=== PATIENT | female | born 1995 | race Caucasian/White ===

== ENCOUNTER 2016-10-10 17:13 | Emergency (ER) | payer MEDICAID ==
[~2016-10-10] VITALS: Ht 170.2 cm; Wt 81.6 kg
[~2016-10-10 17:13] MED LIST: AUGMENTIN 875-1 EACH PO; FAMILY PHARMAC325 MG PO; IMPLANON68 MG ID; MEDROL 4MG. DOSE4 MG PO; MOTRIN 400MG.400 MG PO; PRENATAL1 TA2 PO; ZOFRAN ODT4 MG PO
[2016-10-10] MEDS ORDERED: LISINOPRIL10 MG PO (17:44)
[2016-10-10] MEDS ORDERED: SPRINTEC 35 MCG1 TAB PO (17:44)
[2016-10-10] MEDS ORDERED: SERTRALINE 100100 MG PO (17:44)
[2016-10-10] MEDS ORDERED: MUCINEX1200 MG PO (18:14)
[2016-10-10] MEDS ORDERED: FLONASE 50 MCG16 GM (18:14)
[2016-10-10] MEDS ORDERED: CLARITIN 10MG T10 MG PO (18:14)
--- NOTE | 2016-10-10 18:16 | Urgent Treatment Center Report ---
History of Present Issue Date/Time Seen by Provider 10/10/16 0173 Visit Reason Pt arrived:Walked Presenting Problem:PT C/O HEADACHES FOR THE PAST WEEK, COUGH, CONGESTED Location if Accident: Onset of symptoms date/time:/ or onset unknown for:MEDICAL HX UNKNOWN Have you (or family members/close friends) recently traveled outside the [place]? N If Yes, where/when: Have you had exposure to infectious disease within the past month? TB? Other? Specify: Patient states that she hasn't felt well for about a week states that she has had cough and felt like she had fluid in her ears. States that she also has been having sneezing and other allergy symptoms. States that she hasn't taken anything for it over the counter and it has not got better or worse over the last week ALLERGIES Coded Allergies: No Known Allergies (09/04/15) Home Medications Reported Medications Lisinopril 10 MG PO DAILY #30 Sertraline Hydrochloride (Sertraline 100MG) 100 MG PO DAILY #30 NORGESTIMATE-ETHINYL ESTRADIOL (Sprintec 28 Day Tablet) 1 TAB PO DAILY #28 History Medical History General CAD? No Angina: No [place]: No Hypertension? Yes Hyperlipidemia? No CHF? No DVT? No PE? No COPD? No Asthma? No Anemia? No GERD? No Gastric ulcers? No GI Bleed? No Hernia? No Thyroid Problems? No Hypothyroidism? No CVA? No Seizures? No Diabetes? No Insulin Dependent: No Insulin Pump: No Home FSBS? No Renal Insuffiency? No UTI? Yes Stones? No BPH? No GB Disease: No Nephritic Syndrome? No Asplenia? No Hepatitis? No Sickle Cell Disease? No Arthritis? No Migraines? Yes Cataracts? No Glaucoma? No MRSA? No HIV? No TB? No Anxiety? No Depression? No Cancer? No More? 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 Respiratory cough (at times) Physical Exam Vital Signs Vital Signs Date Time Temp Pulse Resp B/P Pulse O2 O2 Flow FiO2 Ox Delivery Rate 10/10 1741 98.9 115 16 132/88 98 Patient complaining of allergy symptoms states that she has been having the feeling of ear fullness for over a week with associated sneezing and cough. 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 Cardiovascular normal exam, regular rate/rhythm Neurologic alert, normal exam, oriented x 3 Glascow Coma Scale Glascow Coma Scale Response Value EYE response: 4 Spontaneously 4 MOTOR response: 6 OBEYS 6 VERBAL response: 5 Oriented & Converses 5 Total 15 Medical Decision Making LABS/Meds/Orders Pt receiving controlled substance in ED? No Departure Departure Time of Disposition 1819 Disposition DC Home or Self Care(routine) Clinical Impression Primary Impression: Allergic rhinitis Qualifiers: Allergic rhinitis seasonality: unspecified seasonality Allergic rhinitis trigger: unspecified Qualified Code: J30.9 - Allergic rhinitis, unspecified Condition STABLE Referrals NAZARIO DAVENPORT (Family) Patient Instructions Allergic Rhinitis Additional Instructions Follow up with family doctor if no improvement of symptoms or symptoms worsen Take Medications as prescribed Return to [facility] if needed Discharge Counseling Counseled pt/family regarding diagnosis, home care Prescriptions Current Visit Scripts Loratadine (Claritin 10MG) 10 MG PO DAILY #30 TAB Guaifenesin (Mucinex) 1,200 MG PO BID #10 TER Fluticasone Propionate (Flonase 50 Mcg Nasal [place]) 2 SPRAY NA DAILY #1 BOT Comments Patient advised to take medications as directed and patient verbalized understanding at 1821
--- NOTE | 2016-10-10 18:16 | Urgent Treatment Center Report ---
History of Present Issue Date/Time Seen by Provider 10/10/16 8536 Visit Reason Pt arrived:Walked Presenting Problem:PT C/O HEADACHES FOR THE PAST WEEK, COUGH, CONGESTED Location if Accident: Onset of symptoms date/time:/ or onset unknown for:MEDICAL HX UNKNOWN Have you (or family members/close friends) recently traveled outside the [place]? N If Yes, where/when: Have you had exposure to infectious disease within the past month? TB? Other? Specify: Patient states that she hasn't felt well for about a week states that she has had cough and felt like she had fluid in her ears. States that she also has been having sneezing and other allergy symptoms. States that she hasn't taken anything for it over the counter and it has not got better or worse over the last week ALLERGIES Coded Allergies: No Known Allergies (09/04/15) Home Medications Reported Medications Lisinopril 10 MG PO DAILY #30 Sertraline Hydrochloride (Sertraline 100MG) 100 MG PO DAILY #30 NORGESTIMATE-ETHINYL ESTRADIOL (Sprintec 28 Day Tablet) 1 TAB PO DAILY #28 History Medical History General CAD? No Angina: No [place]: No Hypertension? Yes Hyperlipidemia? No CHF? No DVT? No PE? No COPD? No Asthma? No Anemia? No GERD? No Gastric ulcers? No GI Bleed? No Hernia? No Thyroid Problems? No Hypothyroidism? No CVA? No Seizures? No Diabetes? No Insulin Dependent: No Insulin Pump: No Home FSBS? No Renal Insuffiency? No UTI? Yes Stones? No BPH? No GB Disease: No Nephritic Syndrome? No Asplenia? No Hepatitis? No Sickle Cell Disease? No Arthritis? No Migraines? Yes Cataracts? No Glaucoma? No MRSA? No HIV? No TB? No Anxiety? No Depression? No Cancer? No More? 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 Respiratory cough (at times) Physical Exam Vital Signs Vital Signs Date Time Temp Pulse Resp B/P Pulse O2 O2 Flow FiO2 Ox Delivery Rate 10/10 1741 98.9 115 16 132/88 98 Patient complaining of allergy symptoms states that she has been having the feeling of ear fullness for over a week with associated sneezing and cough. 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 Cardiovascular normal exam, regular rate/rhythm Neurologic alert, normal exam, oriented x 3 Glascow Coma Scale Glascow Coma Scale Response Value EYE response: 4 Spontaneously 4 MOTOR response: 6 OBEYS 6 VERBAL response: 5 Oriented & Converses 5 Total 15 Medical Decision Making LABS/Meds/Orders Pt receiving controlled substance in ED? No Departure Departure Time of Disposition 1819 Disposition DC Home or Self Care(routine) Clinical Impression Primary Impression: Allergic rhinitis Qualifiers: Allergic rhinitis seasonality: unspecified seasonality Allergic rhinitis trigger: unspecified Qualified Code: J30.9 - Allergic rhinitis, unspecified Condition STABLE Referrals NAZARIO DAVENPORT (Family) Patient Instructions Allergic Rhinitis Additional Instructions Follow up with family doctor if no improvement of symptoms or symptoms worsen Take Medications as prescribed Return to [facility] if needed Discharge Counseling Counseled pt/family regarding diagnosis, home care Prescriptions Current Visit Scripts Loratadine (Claritin 10MG) 10 MG PO DAILY #30 TAB Guaifenesin (Mucinex) 1,200 MG PO BID #10 TER Fluticasone Propionate (Flonase 50 Mcg Nasal [place]) 2 SPRAY NA DAILY #1 BOT Comments Patient advised to take medications as directed and patient verbalized understanding at 1821
[2016-10-10 18:26] VITALS: BP 132/88
== END 2016-10-10 18:27 | disposition home or self-care (01) ==
LOC: UTC 17:13
DX: J30.9 Allergic rhinitis, unspecified (principal); I10 Essential (primary) hypertension